=== PATIENT | female | born 1995 | race Two or more races ===

== ENCOUNTER 2017-05-17 22:09 | Emergency (ER) | payer OTHER ==
[~2017-05-17] VITALS: Ht 154.9 cm; Wt 71.2 kg
[2017-05-17 22:28] VITALS: BP 144/92
[2017-05-17] MEDS ORDERED: DIPH,PERTUSS(ACELL),TET VAC/PF 0.5 ML IM-VACC ONE ×2 (23:00→23:03)
[2017-05-17] MEDS ORDERED: LIDOCAINE 1%, 20ML INFIL ONE (23:00)
[2017-05-17] MEDS ORDERED: LIDOCAINE 1%, 20ML ONE (23:03)
== END 2017-05-18 00:50 | disposition home or self-care (01) ==
LOC: ED 05-18 00:44
DX: S31.41XA Laceration without foreign body of vagina and vulva, initial encounter (principal); Y93.39 Activity, other involving climbing, rappelling and jumping off; Y92.89 Other specified places as the place of occurrence of the external cause; Y99.8 Other external cause status
CPT/HCPCS: 12001; 90471; 90715